=== PATIENT | male | born 1940 | race Caucasian/White ===

== ENCOUNTER 2023-10-31 05:53 | Day surgery (SDC) | payer MEDICARE, SELFPAY ==
--- NOTE | 2023-10-18 19:00 | W.PN.UPDATE ---
Update Note
Progress Note Update
Mediastinal mass 9cm-increased in size on Chest CT--faxed to PCP and pulmonary--will text Dr. Babb in am--phooned patient-- aware
[2023-10-31] VITALS (15 sets, daily range): BP systolic 84–167; BP diastolic 53–86; BMI 21.2
[2023-10-31] MEDS: NSS 500 IV (06:44)
[2023-10-31] MEDS: TYLENOL 1000 MG PO (07:09)
[2023-10-31 08:55] LABS: ACT-LR - POC 202 Seconds (116-155)
[2023-10-31 09:14] LABS: ACT-LR - POC 224 Seconds (116-155)
--- NOTE | 2023-10-31 09:59 | ITS.CL.ABL ---
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
Ablation
Procedure Report:
ELECTROPHYSIOLOGY ABLATION STUDY
�
DATE:: October 31, 2023�����������������������������REFERRING: Dr. Rosey Hughes
�
INDICATION: Paroxysmal supraventricular tachycardia in the form of atrial fibrillation.� History of moderate aortic stenosis by 2023 echocardiogram
�
HISTORY: See H and P.��As above
�
ANTIARRHYTHMIC DRUG: Discussed class I class III 100 and the drugs and opted for pulmonary vein isolation
�
PRE-PROCEDURE JERICHO: No atrial thrombus
�
PRESENTING RHYTHM: Sinus rhythm
�
'TIME-OUT':��called and confirmed.
�
SEDATION/ANESTHESIA:��provided via the anesthesia department using general anesthesia (LMA).
�
INTRAVENOUS/ARTERIAL ACCESS:
Right femoral venous - 8Fr
Left femoral venous - 8 Fr, 6 Fr
Pkmekx-xn-xkzzq stitch was utilized for closure
Ultrasound guidance for bilateral femoral vein access was utilized by me to obtain access with demonstration of normal anatomy
CHADS-VASC Score:
�
HAS-Bled Score
�
PROCEDURE:
1.��A decapolar CS catheter was placed within the CS for mapping and pacing.��This was also used as the reference catheter for the 3-D map.
�
2. The intracardiac ultrasound catheter was positioned in the RA to identify the FO for targeting of transseptal puncture, assist��in identification of the pulmonary vein ostia, monitoring pre and post ablation pulmonary vein flow velocities,
monitoring for 'bubble' formation during RF application as a sign of thermal injury,��and to monitor for pericardial effusion during mapping and ablation procedure.���Left atrial size, LV ejection fraction, and pulmonary vein flows were monitored
pre and post ablation procedure. The other valves were inspected and found to be free of significant regurgitation or stenosis.
�
3.��Half of the calculated heparin bolus was administered prior to the first transeptal puncture.��Transseptal puncture was performed to diagnose RA and LA pressure so that safety of LA mapping and ablation could be further assessed, and to access
the left atrium and pulmonary veins for mapping and ablation.��This entailed advancing an 10 American steerable with dilator into the superior vena cava and withdrawing both (monitoring intracardiac ultrasound, fluoroscopy and tip pressure) with the
tip oriented toward the atrial septum.��The fossa ovalis was engaged (indicated by sudden displacement of the sheath tip as well as tenting of the fossa seen on intracardiac ultrasound).��Left atrial access required a pass with the [place]
needle extended.��Left atrial catheter position was confirmed by pressure monitoring (RA mean pressure 8 mm Hg and LA mean presure 14 mm Hg), LA saturation (99%),��as well as fluoroscopy.��The sheath was advanced over the dilator and positioned in
the left atrium.� Over a ProTrac wire the 10 American steerable sheath was upgraded to the fair drive sheath. �The remainder of the calculated heparin bolus was administered and heparin was
infused to maintain ACT at 300 -350 seconds throughout the case.
�
4.��RA pacing was performed via the proximal decapolar poles and LA pacing was performed via the distal decapolr poles.
�
5. A quadrapolar catheter was first positioned at the His position for His Bundle recording which was tagged via the 3-D Navex sytem, and then passed to the RVA for RV pacing and recording.
�
6. The multipolar catheter and the femoral pulse catheter were placed in each of the LIPV, LSPV, RSPV and the RIPV.��
�
7.��Next, a 3-D map was created using Navex.���A 3-D reconstructed CT image was compared to the 3-D Navex map to assist in anatomic interpretation, mapping and ablation.��The CT image and the NavX image were fused.
�
8. A total of 57 lesions were given with direct contact visualized on intracardiac ultrasound and utilizing the mapping system. [place], basket and flower lesions were given to each of the 4 pulmonary veins and lesions in the flower post given to
the left atrial posterior wall rendering the posterior wall isolated as well as entrance and exit block in each of the 4 pulmonary veins. Once entrance next but was confirmed in all 4 pulmonary veins and the posterior wall EP study did not
demonstrate any other nonpulmonary triggers for atrial fibrillation nor atrial flutter inducible.
�
9. Normal sinus node and AV yudy function noted.
�
TOTAL FLOURO TIME: 17 minutes
�
TOTAL RF DURATION: 0 minutes
�
REVERSAL OF HEPARIN: 30 mg of protamine, slow IV administration
�
COMPLICATIONS:
None
Intracardiac US shows no pericardial effusion post ablation.
�
SUMMARY:��
Complex left atrial mapping and ablation.
All 4 pulm veins isolated in the left atrial posterior wall isolated with fair pulse and 57 lesions.
�
RECOMMENDATIONS:
1. Admit to monitored bed.��
2. Resume anticoagulation
3.� Out of bed in 4 hours and consider same-day discharge
4.��Follow-up with Dr. Hughes
�
Copy to: Dr. Rosey Hughes
�
--- NOTE | 2023-10-31 14:09 | W.PN.UPDATE ---
Update Note
Progress Note Update
83 yo WM s/p PVI (same day). He denies cp, sob, rex diet, b/l groins c/d/i, soft, EKG SB with RBBB. He will continue OAC Eliquis tonight at home. Activity restrictions reviewed. He will f/u Dr. Hughes and DCA EP in 3 mo. He is for d/c home after
230pm if able to void.
SUMMARY:��
Complex left atrial mapping and ablation.
All 4 pulm veins isolated in the left atrial posterior wall isolated with fair pulse and 57 lesions.
�
RECOMMENDATIONS:
1. Admit to monitored bed.��
2. Resume anticoagulation
3.� Out of bed in 4 hours and consider same-day discharge
4.��Follow-up with Dr. Hughes
�
Copy to: Dr. Rosey Hughes
== END 2023-10-31 14:35 | disposition home or self-care (01) ==
LOC: CATH 05:53
PROVIDERS: ATTENDING PHYSICIAN Internal Medicine Cardiovascular Disease; FAMILY PHYSICIAN Family Medicine; OTHER PHYSICIAN Internal Medicine Cardiovascular Disease
DX: I48.0 Paroxysmal atrial fibrillation (principal); I47.19 Other supraventricular tachycardia; R07.9 Chest pain, unspecified; R00.2 Palpitations; I35.0 Nonrheumatic aortic (valve) stenosis; I44.0 Atrioventricular block, first degree; I45.10 Unspecified right bundle-branch block; Z79.01 Long term (current) use of anticoagulants
CPT/HCPCS: C1732; C1894; C1730; C1892; C1759; 85347; 86900; 86901; 93005; 93656; C1733; C1766